=== PATIENT | female | born 1985 | race Caucasian/White ===

== ENCOUNTER → 2017-04-06 | Outpatient (CLI) | payer BC | LOC: MC.RAD 13:44 | DX: N64.4 Mastodynia (principal) ==

== ENCOUNTER 2019-03-22 02:20 | Inpatient (IN) | payer BC ==
[~2019-03-22] VITALS: Ht 162.6 cm; Wt 95.5 kg
[2019-03-22] VITALS (24 sets, daily range): BP systolic 93–146; BP diastolic 55–81; PULSE 74–110; TEMP 97.2–98.2
--- NOTE | 2019-03-22 02:40 | NUR ---
PT ARRIVES TO UNIT VIA WHEELCHAIR WITH COMPLAINTS OF CONTRACTIONS. CHANGED INTO GOWN, ORIEINTED TO ROOM, VS OBTAINED, EFM X2 APPLIED, SVE PERFORMED.
--- NOTE | 2019-03-22 03:05 | NUR ---
ORDERS 500ML BOLUS OF NS AND COLLECT ADMIT LABS BUT DO NOT ADMIT AT THIS TIME.
[2019-03-22 04:08] LABS: BASO % 0.2 % (0.0-2.0); EOS % 0.2 % (0-4.0); GRAN # 8.3 (1.4-6.5); GRAN % 82.1 % (42.2-75.2); HEMATOCRIT 37.3 % (37.0-47.0); HEMOGLOBIN 12.4 g/dl (12.5-16.0); LYMPH # 0.8 (1.2-3.4); LYMPH % 8.2 % (20.0-51.0); MEAN CELL VOLUME 89 fl (80.0-100.0); MEAN CORPUSCULAR HEMOGLOBIN 30 pg (27.0-31.0); MEAN CORPUSCULAR HGB CONC 33 g/dl (33.0-37.0); MEAN PLATELET VOLUME 10.8 fl (7.4-10.4); MONO # 0.9 (0.1-0.6); MONO % 8.6 % (1.7-9.3); PLATELET COUNT 211 K/mm3 (130-400)
[2019-03-22] MEDS ORDERED: PRENATAL PO (04:56)
[2019-03-22] MEDS ORDERED: ZYRTEC 10MG10 MG PO (04:57)
--- NOTE | 2019-03-22 04:59 | NUR ---
PT OFF MONITOR TO OR FOR REPEAT C/S.
--- NOTE | 2019-03-22 06:04 | NUR ---
STRIP FROM [id number] MONITORED IN OR DURING SPINAL.
--- NOTE | 2019-03-22 09:13 | NUR ---
Initial visit; Parents thanked Chief I Dispatcher for offering congratulations and God's blessings for the of their son. Chief I Dispatcher thanked family for choosing [facility].
[2019-03-23 03:40] VITALS: BP 84/55; PULSE 73; TEMP 97.7
[2019-03-23 07:48] VITALS: BP 89/52; PULSE 76; TEMP 98.2
[2019-03-23 16:25] VITALS: BP 113/60; PULSE 76; TEMP 97.6
[2019-03-23 20:00] VITALS: BP 93/61; PULSE 86; TEMP 98.7
[2019-03-24 06:50] VITALS: BP 88/59; PULSE 70; TEMP 97.8
[2019-03-24] MEDS ORDERED: IBU800 M1 PO (08:15)
[2019-03-24] MEDS ORDERED: PERCOCET 325 MG1 TA2 PO (08:16)
--- NOTE | 2019-03-24 11:26 | NUR ---
Initial visit; Parents thanked Physicist [employer] for offering congratulations and God's blessings for the of their son. staff physical therapist thanked them for choosing [facility].
== END 2019-03-24 12:55 | disposition home or self-care (01) | DRG 788 ==
LOC: LDRO 02:20 → LDR 04:28 → LDRO 04:29 → OB 07:25
PROVIDERS: ADMIT Student in an Organized Health Care Education/Training Program
PROC: 10D00Z1 Extraction of Products of Conception, Low, Open Approach (ICD-10-PCS; principal; 2019-03-22)
DX: O34.211 Maternal care for low transverse scar from previous cesarean delivery (principal); Z3A.37 37 weeks gestation of pregnancy; Z37.0 Single live birth; O99.284 Endocrine, nutritional and metabolic diseases complicating childbirth; E78.00 Pure hypercholesterolemia, unspecified; O26.893 Other specified pregnancy related conditions, third trimester; E28.2 Polycystic ovarian syndrome; O77.0 Labor and delivery complicated by meconium in amniotic fluid; Z90.49 Acquired absence of other specified parts of digestive tract; Z67.21 Type B blood, Rh negative
CPT/HCPCS: J0690; J1885; J2370; J2405; J2590; J2791; J3010; J7030; J7120